=== PATIENT | male | born 1960 | race Two or more races ===

== ENCOUNTER → 2017-04-20 | Outpatient (CLI) | payer BC ==
--- NOTE | 2017-04-20 15:13 | RADRPT ---
PROCEDURE: XR Knees. CLINICAL INDICATION: Bilateral knee pain. TECHNIQUE: Total of six views. Frontal, oblique, and lateral views of both knees. COMPARISON: No prior study is available for comparison. FINDINGS: There is no fracture or dislocation. The soft tissues are normal. There are degenerative changes with osteophytes arising from all 3 joint compartment margins bilater ally. There is bilateral medial joint compartment narrowing. There is no lytic or blastic lesion. There is no radiopaque foreign body. IMPRESSION: 1. Moderate degenerative changes of both knees. 2. No acute abnormality. RPTAT: QQ .Aime Kaminski MD, MD Date Time Electronically viewed and signed by .Aime Kaminski MD, on 04/20/2017 15:12 .R/
== END | disposition home or self-care (01) ==
LOC: HKI 14:05
DX: M25.561 Pain in right knee (principal); M25.562 Pain in left knee
CPT/HCPCS: 73562; Z7500; G0463

== ENCOUNTER → 2017-12-06 | Outpatient (CLI) | END | disposition home or self-care (01) ==

== ENCOUNTER → 2018-01-14 | Outpatient (CLI) | END | disposition home or self-care (01) ==

== ENCOUNTER → 2018-08-01 | Outpatient (CLI) | END | disposition home or self-care (01) ==

== ENCOUNTER → 2018-09-06 | Outpatient (CLI) | END | disposition home or self-care (01) ==

== ENCOUNTER → 2019-03-08 | Outpatient (CLI) | payer BC ==
--- NOTE | 2019-03-08 17:15 | CONS ---
Assessment/Plan Assessment/Plan Hospital Course (Demo Recall) 59-year-old male with right knee osteoarthritis with varus deformity. He is currently having good relief with Monovisc injection. Recommend continuing conservative treatment. In the meantime I did discuss with him smoking cessation. The patient deferred any further physical therapy. Plan: Right knee Monovisc injection Smoking cessation Follow-up PRN Assessment/Plan (Daily) Right knee viscosupplementation injection procedure: Risks and benefits of viscosupplementation injection reviewed with patient. The risks include infection, failure, pain, swelling, nerve/tendon/ligament damage. The patient verbalized understanding and verbal consent was obtained prior to procedure. The right knee was prepped in a sterile fashion with alcohol and betadine the site of injection was confirmed. Lateral approach was used. The skin and capsule was anesthetized with 3mL 1% lidocaine. The right knee was injected with Monovisc. Injection flowed freely. Good hemostasis was achieved and no complications noted. The patient tolerated the procedure well. Limit activity and ice for 24-48 hours Consultation Date/Type/Reason Admit Date/Time Date of Consultation: March 08, 2019 Reason for Consultation Right knee pain Date/Time of Note DATE: 03/08/19 TIME: 17:07 Hx of Present Illness This is a 59-year-old male with a chief complaint of right knee pain. The pain began approximately years ago. The patients pain is in the anterior and medial aspect of the right knee. Pain is not radiating to the lower leg. The pain is rated as a 7/10. Patient denies complaints of numbness or tingling. The pain is exacerbated by climbing stairs and ambulation. Patient has had previous Monovisc injection with significant relief. His last injection was August 2018. He had good relief until late last month. His pain decreased from 7/10 to 3/10 after the injection. He did do physical therapy but only went to therapy twice. He does have history of back pain along with lumbar radiculopathy and numbness and tingling in his lower leg. His pain in his knee and leg is worse at night. He also has left knee pain and would like to be seen for than the future. Duration: Years Injury: No Walking tolerance: Limited Limp: Yes Support: No Swelling: No Crepitation: Yes Instability: no Stairs: With pain Physical Therapy: Not consistently Injections: Hyaluronic acid injection August 2018 with good relief NSAIDs: No Prior surgery: No Back pain: Yes Hip pain: None Risk of AVN : No Patient denies fever, chills, shortness of breath, chest pain, nausea/vomiting, constipation, diarrhea patient does have numbness and tingling in lower extremities. Past Medical History Hypertension Hyperlipidemia Past Surgical History Past Surgical Hx: noncontributory Family History Significant Family History: no pertinent family hx Social History Alcohol Use: none Smoking Status: Current every day smoker (8 to 10 cigarettes a day) Drug Use: none Exam/Review of Systems Exam Vitals Weight: 188 pounds Height: 5 foot 6 inches Temperature: 90.6 Heart Rate: 88 Blood Pressure: 150/84 Respiratory Rate: 14 Exam General: Alert, oriented x3. No Acute Distress. Heart: Regular rate and rhythm. Lungs: No respiratory distress. No accessory muscle use. Musculoskeletal: Right Knee This is a well developed male who is alert, oriented times three and in no apparent distress. Skin is intact over the right knee as well as the lower extremity with no abrasions, lacerations, or ulcerations. Observation of the patient's gait reveals an antalgic gait with Varus thrust. Frontal plane alignment is varus. There is pain on palpation of medial joint line. The patient demonstrates grinding anteriorly with ROM. Range of motion: 10 extension to approximately 130 degrees of flexion. There is pseudolaxity with valgus stress. Collateral ligament testing reveals no instability with varus or valgus stress at 0 and 30 degrees of flexion. Negative Haris's and negative posterior drawer. Neurovascularly intact with 5/5 EHL/tibialis anterior/gastroc. Sensation intact to light touch in a sural, saphenous, deep peroneal, superficial peroneal, medial and lateral plantar nerve distribution. Palpable, symmetric dorsalis pedis and posterior tibial pulses in both lower extremities. Hip examination normal. Imaging Imaging The patient received a standard set of films today that were personally reviewed. Imaging included a standing bilateral knee AP, PA flexion, merchant views and a dedicated lateral of the affected knee: There is varus alignment of the knee. There is complete loss of joint space in the medial compartment(s). There is osteophyte formation. There is subchondral sclerosis. There are subchondral cysts. Degenerative changes are most severe in the medial compartment(s) DONOVAN LOWERY MD March 08, 2019 17:15
== END | disposition home or self-care (01) ==
LOC: HKI 09:40
PROVIDERS: ATTEND Orthopaedic Surgery Adult Reconstructive Orthopaedic Surgery
DX: M17.11 Unilateral primary osteoarthritis, right knee (principal); M21.161 Varus deformity, not elsewhere classified, right knee
CPT/HCPCS: 20610; J7327; Z7500; Z7610; G0463